=== PATIENT | female | born 1985 | race African-American/Black ===

== ENCOUNTER 2020-01-24 09:47 | Emergency (ER) | payer MEDICAID ==
[~2020-01-24] VITALS: Ht 177.8 cm; Wt 97.0 kg
[2020-01-24 09:57] VITALS: BP 136/65
== END 2020-01-24 12:24 | disposition home or self-care (01) ==
LOC: ER 09:47
DX: S83.92XA Sprain of unspecified site of left knee, initial encounter (principal); W18.11XA Fall from or off toilet without subsequent striking against object, initial encounter; Y93.89 Activity, other specified; Y92.89 Other specified places as the place of occurrence of the external cause; Y99.8 Other external cause status
CPT/HCPCS: 73562; 99283